=== PATIENT | female | born 1930 | race American Indian/Alaskan Native ===

== ENCOUNTER 2020-10-21 15:10 | Emergency (ER) | payer MEDICARE ==
[2020-10-21] MEDS ORDERED: SODIUM CHLORIDE 0.9% 1000 ML 1,000 ML IV ONE (15:58)
[2020-10-21] MEDS ORDERED: ONDANSETRON 4 MG/2 ML INJ IV ONE (15:58)
--- NOTE | 2020-10-21 16:01 | Emergency Department Report ---
ED Abdominal Pain HPI - General Chief Complaint: Abdominal Pain Stated Complaint: CONSTIPATION Time Seen by Provider: 10/21/20 15:26 Source: patient, EMS Mode of arrival: Stretcher Limitations: No Limitations - History of Present Illness Initial Comments: Patient is 89 years old female with history of hypertension and remote history of kidney tumor status post surgery. Patient brought to the emergency room by her son for evaluation of diffuse abdominal pain for the last 7 days associated with nausea and vomiting. Patient also stated that she did not have a bowel movement for approximately 1 week now. Patient also stated that she is not passing any gas since then. Patient denied any fever or chills. No chest pain or shortness of breath. MD Complaint: abdominal pain -: days(s) (7) Location: diffuse Radiation: none Migration to: no migration Severity: moderate Quality: cramping Consistency: constant - Related Data Home Medications Medication Instructions Recorded Confirmed Last Taken ALBUTEROL NEB's [Proventil] 2.5 mg IH 02/20/13 02/20/13 02/20/13 Hydrochlorothiazide [Hctz] 50 mg PO QDAY 02/20/13 02/20/13 02/20/13 Montelukast [Singulair] 02/20/13 02/20/13 02/20/13 NIFEdipine [Nifedipine Xl] 30 mg PO QDAY 02/20/13 02/20/13 02/19/13 hydrALAZINE [Apresoline TAB] 02/20/13 02/20/13 02/19/13 Allergies Allergy/AdvReac Type Severity Reaction Status Date / Time No Known Allergies Allergy Verified 02/20/13 10:04 ED Review of Systems ROS: Stated complaint: CONSTIPATION Other details as noted in HPI Comment: All other systems reviewed and negative Constitutional: denies: chills, fever Respiratory: denies: cough, shortness of breath, SOB with exertion Cardiovascular: denies: chest pain Gastrointestinal: abdominal pain, nausea, vomiting, constipation. 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) - Surgical History Hx Cholecystectomy: Yes - Social History Smoking Status: Unknown if ever smoked - Medications Home Medications: Home Medications Medication Instructions Recorded Confirmed Last Taken Type ALBUTEROL NEB's [Proventil] 2.5 mg IH 02/20/13 02/20/13 02/20/13 History Hydrochlorothiazide [Hctz] 50 mg PO QDAY 02/20/13 02/20/13 02/20/13 History Montelukast [Singulair] 02/20/13 02/20/13 02/20/13 History NIFEdipine [Nifedipine Xl] 30 mg PO QDAY 02/20/13 02/20/13 02/19/13 History hydrALAZINE [Apresoline TAB] 02/20/13 02/20/13 02/19/13 History ED Physical Exam - General Limitations: No Limitations General appearance: alert, in no apparent distress - Head Head exam: Present: atraumatic, normocephalic, normal inspection - Eye Eye exam: Present: normal appearance - ENT ENT exam: Present: mucous membranes dry - Neck Neck exam: Present: normal inspection, full ROM. Absent: tenderness, meningismus - Respiratory Respiratory exam: Present: normal lung sounds bilaterally - Cardiovascular Cardiovascular Exam: Present: regular rate, normal rhythm, normal heart sounds - GI/Abdominal GI/Abdominal exam: Present: soft, normal bowel sounds. Absent: distended, tenderness, guarding, rebound, rigid, mass, pulsatile mass, hernia - Extremities Exam Extremities exam: Present: normal inspection, full ROM, normal capillary refill. Absent: tenderness - Back Exam Back exam: Present: normal inspection, full ROM. Absent: CVA tenderness (R), CVA tenderness (L) - Neurological Exam Neurological exam: Present: alert, oriented X3, CN II-XII intact - Psychiatric Psychiatric exam: Present: normal mood - Skin Skin exam: Present: warm, intact, normal color ED Course Vital Signs 10/21/20 10/21/20 10/21/20 15:29 16:00 16:16 Pulse Rate 100 H 95 H 97 H Respiratory 18 16 23 Rate Blood Pressure 144/94 143/89 143/89 O2 Sat by Pulse 18 L 99 99 Oximetry 10/21/20 10/21/20 10/21/20 16:30 16:46 17:00 Pulse Rate 90 93 H 94 H Respiratory 25 H 24 19 Rate Blood Pressure 143/89 143/89 157/88 O2 Sat by Pulse 96 98 99 Oximetry 10/21/20 10/21/2021 17:16 17:30 17:41 Pulse Rate 96 H 94 H Respiratory 21 17 Rate Blood Pressure 157/88 157/88 O2 Sat by Pulse 97 97 98 Oximetry 10/21/20 10/21/20 10/21/20 17:46 18:00 18:16 Pulse Rate 95 H 93 H 97 H Respiratory 17 24 19 Rate Blood Pressure 157/88 158/83 158/83 O2 Sat by Pulse 98 97 97 Oximetry ED Medical Decision Making - Lab Data Result diagrams: 10/21/20 16:07 10/21/20 16:07 - Medical Decision Making Patient is 89 years old female with history of hypertension and remote history of kidney tumor status post surgery. Patient brought to the emergency room by her son for evaluation of diffuse abdominal pain for the last 7 days associated with nausea and vomiting. Patient also stated that she did not have a bowel movement for approximately 1 week now. Patient also stated that she is not passing any gas since then. Patient denied any fever or chills. No chest pain or shortness of breath. Labs reviewed and is unremarkable. Patient remained stable. Patient had 2 bowel movement in the emergency room and stated that she feels much better. Critical care attestation.: If time is entered above; I have spent that time in minutes in the direct care of this critically ill patient, excluding procedure time. ED Disposition Clinical Impression: Acute abdominal pain, Constipation Disposition: -01 TO HOME OR SELFCARE Is pt being admited?: No Condition: Stable Instructions: Abdominal Pain (ED), Constipation, Adult, Abdominal Pain, Adult Referrals: PRIMARY CARE,MD [Primary Care Provider] - 3-5 Days
[2020-10-21 16:21] LABS: Basophils # (Auto) 0.1 K/mm3 (0.0-0.1); Basophils % (Auto) 1.2 % (0.0-1.8); Eosinophils % (Auto) 0.1 % (0.0-4.3); Hematocrit 32.5 % (30.3-42.9); Hemoglobin 10.7 gm/dl (10.1-14.3); Lymphocytes # (Auto) 1.5 K/mm3 (1.2-5.4); Lymphocytes % (Auto) 17.5 % (13.4-35.0); Mean Corpuscular HGB Conc 33 % (30-34); Mean Corpuscular Volume 77 fl (79-97); Monocytes # (Auto) 0.9 K/mm3 (0.0-0.8); Monocytes % (Auto) 10.5 % (0.0-7.3); Platelet Count 364 K/mm3 (140-440); Red Blood Count 4.22 M/mm3 (3.65-5.03); Red Cell Distribution Width 16.1 % (13.2-15.2)
[2020-10-21 16:31] LABS: INR 1.17 (0.87-1.13)
[2020-10-21 16:42] LABS: Alanine Aminotransferase 21 units/L (7-56); Albumin 3.1 g/dL (3.9-5); Blood Urea Nitrogen 21 mg/dL (7-17); Calcium 9.4 mg/dL (8.4-10.2); Hemolysis Index 9
[2020-10-21 16:43] LABS: BUN/Creatinine Ratio 30; Bilirubin,Direct < 0.2 mg/dL (0-0.2)
--- NOTE | 2020-10-21 19:59 | Cat Scan Report ---
CT abdomen pelvis w con INDICATION / CLINICAL INFORMATION: abdominal pain. TECHNIQUE: All CT scans at this location are performed using CT dose reduction for ALARA by means of automated e xposure control. COMPARISON: None available. FINDINGS: No free fluid is seen in the abdomen. The colon is filled with fluid. The colon wall does not appear to be thickened. The gallbladder has been surgically removed. The right kidney is also been surgicall y removed. Small cysts are seen in the left kidney. The liver, spleen and adrenal glands are normal. No enlarged mesenteric or retroperitoneal lymph nodes are seen. Mild pancreatic duct dilatation is pr esent. In the pelvis, no free fluid is seen. Changes of diverticulosis are present. No enlarged lymph nodes are identified. The bladder is normal. The appendix is not well visualized. No significant skeletal a bnormality is seen other than degenerative change in the spine. IMPRESSION: 1. Fluid-filled colon which could represent enteritis. Most of the small bowel is normal in appearanc e. Changes of diverticulosis are present. 2. Mild pancreatic duct dilatation without obvious mass or stone in the pancreatic head 3. Cholecystectomy and right nephrectomy Signer Name: Shahram Nelson MD FACR Signed: 10/21/2020 7:55 PM Workstation Name: [id number]
[2020-10-21 20:26] VITALS: BP 164/86
== END 2020-10-21 20:42 | disposition home or self-care (01) ==
LOC: ED 15:10
DX: K59.00 Constipation, unspecified (principal); R10.84 Generalized abdominal pain; R11.2 Nausea with vomiting, unspecified; I10 Essential (primary) hypertension; J44.9 Chronic obstructive pulmonary disease, unspecified; Z90.49 Acquired absence of other specified parts of digestive tract; Z79.899 Other long term (current) drug therapy
CPT/HCPCS: 36415; 74177; 80048; 80076; 83690; 85025; 85610; 96361; 96374; 99284; Q9967